=== PATIENT | male | born 1965 | race Hispanic/Latino ===

== ENCOUNTER 2023-08-09 11:30 | Emergency (ER) | payer MEDICAID ==
[~2023-08-09] VITALS: Ht 180.3 cm; Wt 136.1 kg
[2023-08-09 11:32] VITALS: BP 150/94; PULSE 81; RESP 16
[2023-08-09 13:11] LABS: BASOPHILS # (AUTO) 0.03 K/uL (0.00-0.20); BASOPHILS % (AUTO) 0.3 % (0.0-5.0); EOSINOPHILS # (AUTO) 0.36 K/uL (0.00-0.70); EOSINOPHILS % (AUTO) 3.6 % (0.0-8.0); HEMATOCRIT 40.4 % (42-54); IMMATURE GRANULOCYTE ABSOLUTE 0.04 K/uL (0-1); LYMPHOCYTES # (AUTO) 2.2 K/uL (1.0-4.8); LYMPHOCYTES % (AUTO) 22.1 % (21.0-51.0); MEAN CORPUSCULAR HEMOGLOBIN 28.8 pg (27.0-33.0); MEAN CORPUSCULAR HGB CONC 33.4 g/dL (32.0-36.0); MEAN CORPUSCULAR VOLUME 86.3 fL (79-99); MONOCYTES # (AUTO) 0.5 K/uL (0.1-1.0); MONOCYTES % (AUTO) 4.5 % (3.0-13.0); NEUTROPHILS % (AUTO) 69.1 % (40.0-77.0); PLATELET COUNT (AUTO) 262 K/uL (130-400); RED BLOOD CELL COUNT(AUTO) 4.68 MIL/uL (4.50-6.20); RED CELL DISTRIBUTION WIDTH 13.5 % (11.0-15.5); WHITE BLOOD COUNT (AUTO) 10.1 K/uL (4.8-10.8)
[2023-08-09] MEDS ORDERED: CLIN-141 PO (13:28)
[2023-08-09] MEDS: CLINDAMYCIN 150 MG CAP PO ONE (13:55)
== END 2023-08-09 13:58 | disposition home or self-care (01) ==
LOC: EDH 11:30
DX: L03.011 Cellulitis of right finger (principal); E11.9 Type 2 diabetes mellitus without complications; Z89.611 Acquired absence of right leg above knee; Z89.612 Acquired absence of left leg above knee
CPT/HCPCS: 36415; 73140; 83605; 85025

== ENCOUNTER 2024-08-24 10:39 | Emergency (ER) | payer MEDICAID ==
[~2024-08-24] VITALS: Ht 157.5 cm; Wt 117.9 kg
[~2024-08-24 10:39] MED LIST: CLIN-141 PO
--- NOTE | 2024-08-24 11:08 | ERN ---
General Chief Complaint: Shortness of Breath Stated Complaint: SOB WHEN WALKING Time Seen by MD: 10:40 History of Present Illness Initial Comments 59-year-old male, history of hypertension diabetes, bilateral lower leg amputation, presents for dyspnea for the last 24 hours or so. Patient reports no chest pains, cough, fevers, difficulty lying flat, symptoms at night, or any other complaints. He reports that over the last day or so he feels very winded especially when he walks a distance, such as from the parking lot here into the emergency department. He does have to sit you rest. Allergies: Coded Allergies: No Known Drug Allergies (Unverified Allergy, Unknown, 08/09/23) Home Meds Active Scripts Clindamycin HCl (Clindamycin HCl) 300 Mg Capsule, 1 CAP PO QID for 10 Days, #40 CAP 0 Refills Prov:GORDONJUAN Lopez [employer] 08/09/23 Past Medical History Past Medical History: Diabetes-Type II Past Surgical History: Other Surgical History Other: BILATERAL AKA Results Laboratory and Microbiology Lab and Micro Result Laboratory Tests Test 08/24/24 11:12 08/24/24 11:19 08/24/24 11:22 SARS-CoV-2 Antigen (Rapid) PRESUMPTIVE NEGATIVE Blood Gas Specimen Type Arterial Arterial Blood pH 7.311 (7.350-7.450) Arterial Blood Partial Pressure CO2 30 mmHg (35-48) L Arterial Blood Partial Pressure O2 106.2 mmHg (83.0-108.0) Arterial Blood HCO3 14.9 mmol/L (21.0-28.0) L Arterial Blood Oxygen Saturation 97.5 % (94.0-98.0) Arterial Blood Base Excess -9.8 mmol/L (-2.0-3.0) L Blood Gas Temperature 37.0 CELSIUS (35.5-37.0) Blood Gas Vent Mode ROOM AIR (ROOM AIR) FiO2 21.0 % Blood Gas Specimen Comment RR CELIA White Blood Count 10.9 K/uL (4.8-10.8) H Red Blood Count 5.33 MIL/uL (4.50-6.20) Hemoglobin 14.7 g/dL (14.0-18.0) Hematocrit 44.3 % (42-54) Mean Corpuscular Volume 83.1 fL (79-99) Mean Corpuscular Hemoglobin 27.6 pg (27.0-33.0) Mean Corpuscular Hemoglobin Concent 33.2 g/dL (32.0-36.0) Red Cell Distribution Width 15.5 % (11.0-15.5) Platelet Count 261 K/uL (130-400) Mean Platelet Volume 10.7 fL (7.5-10.5) H Immature Granulocyte % (Auto) 0.3 % (0-1) Neutrophils (%) (Auto) 72.1 % (40.0-77.0) Lymphocytes (%) (Auto) 17.7 % (21.0-51.0) L Monocytes (%) (Auto) 5.6 % (3.0-13.0) Eosinophils (%) (Auto) 3.8 % (0.0-8.0) Basophils (%) (Auto) 0.5 % (0.0-5.0) Neutrophils # (Auto) 7.9 K/uL (1.8-7.7) H Lymphocytes # (Auto) 1.9 K/uL (1.0-4.8) Monocytes # (Auto) 0.6 K/uL (0.1-1.0) Eosinophils # (Auto) 0.41 K/uL (0.00-0.70) Basophils # (Auto) 0.05 K/uL (0.00-0.20) Absolute Immature Granulocyte (auto 0.03 K/uL (0-1) Nucleated Red Blood Cells 0.0 % (0.0-0.19) Sodium Level 140 mmol/L (136-145) Potassium Level 4.5 mmol/L (3.5-5.1) Chloride Level 107 mmol/L (101-111) Carbon Dioxide Level 22 mmol/L (21-32) Blood Urea Nitrogen 52 mg/dL (7-18) H Creatinine 3.3 mg/dL (0.5-1.3) H Glomerular Filtration Rate Calc 21 mL/min (>90) Random Glucose 112 mg/dL (70-105) H Total Calcium 8.7 mg/dL (8.5-10.1) Total Creatine Kinase 91 U/L (21-232) Troponin I High Sensitivity 8.0 ng/L (4-75) B-Type Natriuretic Peptide 24 pg/mL (0-100) MDM CC: Dyspnea Historian: Patient Comorbidities: Diabetes, hypertension, CKD Limitations by social determinants of health: None Differential diagnosis: ACS, viral URI, fluid overload, CHF, ESRD, other. EKG: Sinus rhythm rate of 71 left axis deviation delayed R-wave progression intervals are stable no STEMI. Independently interpreted by me. Vital signs: Stable, remained stable here in the ER. Clinical exam is unremarkable. Clear lungs, no distress Labs (independently ordered and interpreted by me): CBC is normal. Blood gas 7.3, pCO2 is 30. PaO2 is stable. Base excess -9.8 with a bicarb of 14.9. Appears to be metabolic. Chemistry panel shows stable electrolytes, the BUN is 52 creatinine 3.3, GFR is 21. CK troponin BNP are all stable. It COVID is negative. CXR (independently interpreted by me ): Borderline cardiomegaly, no pleural effusions focal infiltrates or major abnormalities. No external chart review. Patient was not clear on what his baseline kidney function is. The GFR is low at 21. No acute abnormalities. This is likely chronic. Likely stage IV. Plan: No concerning findings at this time. No signs of ACS or heart failure. Patient was ambulatory. His ABG is unremarkable with no hypoxia. He was nontoxic in appearance and speaking full sentences. We will recommend he follow up with his PCP. I suspect he may have worsening kidney function. ED Course Orders Procedure Category Date Status Time Arterial Blood Gas RT 08/24/24 Transmitted 10:47 Cbc With Differential LAB 08/24/24 Complete 10:47 B-Type Natriuretic LAB 08/24/24 Complete Peptide 10:47 Cardiac Panel LAB 08/24/24 Complete 10:47 Chest 1vw RAD 08/24/24 Resulted 10:47 12 Lead Ekg Tracing- EKG 08/24/24 Logged Technical 10:47 Basic Metabolic Panel LAB 08/24/24 Complete 10:47 Covid19 (Sars Antigen LAB 08/24/24 Complete Rapid) 10:47 Arterial Blood Gas LAB 08/24/24 Complete 11:19 Vital Signs Date Time Temp Pulse Resp B/P (MAP) Pulse Ox O2 Delivery O2 Flow Rate FiO2 08/24/24 11:18 98.1 76 20 118/85 97 Room Air* 0 21 08/24/24 11:06 98.1 76 20 118/85 97 Room Air 0 DX & DISP Disposition: Discharge Departure Impression: Primary Impression: CKD (chronic kidney disease) Condition: Stable Additional Instructions: There are no dangerous findings on your workup here today. Your vital signs has been normal including your oxygen level. Your blood work (CBC, metabolic panel, BNP, troponin) is unremarkable other than your kidney function. Your chest x-ray is clear. As we discussed, your symptoms may be related to your worsening kidney function. Your GFR is 21, placing you on stage 4 kidney disease. Your creatinine is 3.3. I recommend that you follow up with a primary provider and a hot head machine operator. I have given you a referral to a hot head machine operator. You may need to get a referral from your primary doctor. Please return to the emergency department if you have any concerns. Referrals: SELF,REFERRAL (PCP) MADISON ROSENTHAL MD, RYAN E DO Aug 24, 2024 11:07
[2024-08-24 11:21] LABS: ABG BASE EXCESS -9.8 mmol/L (-2.0-3.0); ABG HCO3 14.9 mmol/L (21.0-28.0); ABG OXYGEN SATURATION 97.5 % (94.0-98.0); ABG PCO2 30 mmHg (35-48); ABG PH 7.311 (7.350-7.450); DEVICE COMMENT RR PETE; PO2, ARTERIAL BG 106.2 mmHg (83.0-108.0); VENT MODE, BG ROOM AIR (ROOM AIR)
[2024-08-24 11:49] LABS: BASOPHILS # (AUTO) 0.05 K/uL (0.00-0.20); BASOPHILS % (AUTO) 0.5 % (0.0-5.0); EOSINOPHILS # (AUTO) 0.41 K/uL (0.00-0.70); EOSINOPHILS % (AUTO) 3.8 % (0.0-8.0); HEMATOCRIT 44.3 % (42-54); IMMATURE GRANULOCYTE ABSOLUTE 0.03 K/uL (0-1); LYMPHOCYTES # (AUTO) 1.9 K/uL (1.0-4.8); LYMPHOCYTES % (AUTO) 17.7 % (21.0-51.0); MEAN CORPUSCULAR HEMOGLOBIN 27.6 pg (27.0-33.0); MEAN CORPUSCULAR HGB CONC 33.2 g/dL (32.0-36.0); MEAN CORPUSCULAR VOLUME 83.1 fL (79-99); MONOCYTES # (AUTO) 0.6 K/uL (0.1-1.0); MONOCYTES % (AUTO) 5.6 % (3.0-13.0); NEUTROPHILS # (AUTO) 7.9 K/uL (1.8-7.7); NEUTROPHILS % (AUTO) 72.1 % (40.0-77.0); PLATELET COUNT (AUTO) 261 K/uL (130-400); RED BLOOD CELL COUNT(AUTO) 5.33 MIL/uL (4.50-6.20); RED CELL DISTRIBUTION WIDTH 15.5 % (11.0-15.5); WHITE BLOOD COUNT (AUTO) 10.9 K/uL (4.8-10.8)
[2024-08-24 11:55] LABS: CREATININE 3.3 mg/dL (0.5-1.3); POTASSIUM 4.5 mmol/L (3.5-5.1)
--- NOTE | 2024-08-24 12:04 | HMCIMG ---
CHEST 1VW HISTORY: Dyspnea COMPARISON: None FINDINGS: A frontal projection of the chest was obtained. No acute pulmonary infiltrates is seen. The heart is borderline enlarged. Degenerative changes are seen. No evidence of aortic calcification is seen. IMPRESSION: 1. No acute pulmonary infiltrate is seen.
[2024-08-24 12:13] LABS: B-TYPE NATRIURETIC PEPTIDE 24 pg/mL (0-100)
[2024-08-24 13:20] VITALS: BP 121/80; PULSE 72; RESP 20; TEMP 98.1; O2SAT 97
--- NOTE | 2024-08-24 14:25 | EKG ---
[facility] Test Date: 2024-08-24 Test Time: 11:19:40 Pat Name: MARYANN GILLETTE Department: ED Room: Gender: M [employer]: [facility] : 1965 Requested By: DIOGENES GALARZA Order Number: [id number] Reading MD: Kaelyn Arevalo Measurements Intervals [place] Rate: 71 P: 12 [place]: 220 QRS: -21 QRSD: 86 T: 62 QT: 404 QTc: 438 Interpretive Statements Sinus rhythm Prolonged [place] interval No previous ECG available for comparison Electronically Signed On 08-25-2024 13:21:43 CDT by Kaelyn Arevalo Please click the below link to view image of tracing.
== END 2024-08-24 13:23 | disposition home or self-care (01) ==
LOC: EDH 10:39
DX: I12.9 Hypertensive chronic kidney disease with stage 1 through stage 4 chronic kidney disease, or unspecified chronic kidney disease (principal); E11.22 Type 2 diabetes mellitus with diabetic chronic kidney disease; N18.9 Chronic kidney disease, unspecified; Z20.822 Contact with and (suspected) exposure to COVID-19; Z89.611 Acquired absence of right leg above knee; Z89.612 Acquired absence of left leg above knee; Z98.890 Other specified postprocedural states
CPT/HCPCS: 36415; 36600; 71045; 80048; 82550; 82803; 83880; 84484; 85025; 87426; 93005; 99285